=== PATIENT | male | born 1990 | race Caucasian/White ===

== ENCOUNTER 2021-01-17 04:53 | Emergency (ER) | payer OTHER, SELFPAY ==
--- NOTE | ~2021-01-17 | XR_ITS ---
EXAMINATION: XR KNEE, LEFT CLINICAL INFORMATION: Knee injury COMPARISON: None TECHNIQUE: Four views of the left knee. XR/XR knee LT 4V FINDINGS/IMPRESSION: No acute fracture or dislocation. Joint spaces and articular surfaces are maintained. Small suprapatellar joint effusion. Soft tissues unremarkable.
[2021-01-17 05:29] VITALS: BP 113/60; PULSE 71; RESP 18; TEMP 36.4; O2SAT 99; BMI 27.7
[2021-01-17] MEDS: Acetaminophen 325 MG TABLET 650 MG PO (06:32)
--- NOTE | 2021-01-17 06:47 | PC.NURSE ---
at bedside for primary eval.
--- NOTE | 2021-01-17 06:59 | ED_ITS ---
HPI - Extremity Injury (Lower) General Chief Complaint: Extremity Injury, Lower Stated Complaint: possible left knee sprain Time Seen by Provider: 01/17/21 06:43 Source: patient Mode of arrival: ambulatory Limitations: no limitations History of Present Illness HPI Narrative: 30-year-old male who presents emergency department for evaluation of left knee injury. The patient was playing basketball. He states that he he was wearing a left ankle brace. He states that he pivoted and his left knee twisted causing a loud popping sensation. States that he was not able to walk after the injury secondary to pain. The pain is located along the medial aspect of his knee. Describes it as a constant, moderate to severe, aching sensation which is worse with weight-bearing. The patient states this is his 1st injury to this knee. Patient states that he had a tibial fracture of the right knee and was treated at [facility]. He denies any other injury. Related Data Allergies Allergy/AdvReac Type Severity Reaction Status Date / Time No Known Allergies Allergy Unverified 03/10/20 16:09 [No Known Allergies*] Review of Systems Review of Systems: Yes all other systems are reviewed and are negative [facility] Past Medical History [facility] Narrative: Past medical history: None. Social history: He denies tobacco use. Occasionally drinks alcohol, denies drug use. Medical History No known health problems Social History Social History Advance Directives: No Advance Directives Information Provided: No Physical Exam Vital Signs: Vital Signs: Last Vital Signs Temp 97.5 F 01/17/21 05:29 Pulse 71 01/17/21 05:29 Resp 18 01/17/21 05:29 BP 113/60 01/17/21 05:29 Pulse Ox 99 01/17/21 05:29 Body Mass Index 27.7 Const: General: cooperative and healthy appearing Orientation/consciousness: oriented to person Limitations: no limitations HENMT: Head: Yes normal to inspection Resp: Effort & Inspection: normal respiratory effort Neuro: General: oriented to person Extrem: Other: Patient does have soft tissue injury of the left mainly over the medial aspect, there does appear to be a small joint clinically, patient does have tenderness with palpation over the left medial collateral ligament and over the medial aspect of the tibia. The patient has increased pain with anterior dry and with medial stress. His extremities neurovascularly intact. Psych: Appearance: grossly normal Course Course Course Narrative: 22-year-old male who presents emergency department for evaluation of left knee injury sustained while he was polyp basketball. The patient did feel and he hear a loud pop and sensation. His examination does reveal a joint effusion with soft tissue swelling and tenderness over the medial collateral ligament and over the area of the medial meniscus. He has increased pain with medial stress and with interior the stress of has near. X-rays were obtained no acute fracture was noted. I did discuss these findings with the patient, the patient may have injured his medial collateral ligament, medial meniscus or his anterior cruciate ligament. The patient will be placed in a knee immobilizer. He states he has crutches at home from his previous orthopedic injury. He was advised to keep the knee immobilizer on use the crutches until he follows up with his orthopedic provider. He was advised to take ibuprofen and Tylenol for pain. Discharge Plan Discharge Clinical Impression: MCL sprain of left knee Qualifiers: Encounter type: initial encounter Qualified Code(s): S83.412A - Sprain of medial collateral ligament of left knee, initial encounter Patient Disposition: Home, Self-Care Instructions: Knee Sprain (ED), Knee Immobilizer (ED) Additional Instructions: Your presentation and physical findings are consistent with a sprain to your knee (injury to the ligaments). Based on your exam today I suspect that you may have injured your medial collateral ligament. It is also possible that you may have injured the anterior cruciate ligament (ACL) or your medial meniscus. The initial treatment for these injuries is to wear a knee immobilizer for 1-2 weeks and to use your crutches. Use ice for 10-15 minutes 4 to 6 times a day for the next 3-4 days to reduce the pain and swelling. Also take ibuprofen 200 mg pills, 3 pills every 6 hours as needed for pain and take Tylenol (acetaminophen) 500 mg pills, 2 pills every 4 to 6 hours as needed for pain. Call your orthopedic doctor today to make a follow-up appointment within 1-2 weeks. After the pain and swelling is better, the orthopedic doctor's physical examination may help them determine what you injury. Sometimes an MRI of the knee as an outpatient will help also determine what you injured. Please return to the emergency department if your symptoms get worse or if you develop any symptoms that are concerning to you. Your x-ray of your left knee reveals no broken bones. Stand Alone Forms: Work/School Release Interventions: ED Discharge Assessment Last Done: 01/17/21 08:01 Discharge Date/Time: 01/17/21 08:01
== END 2021-01-17 08:01 | disposition home or self-care (01) ==
PROVIDERS: Emergency Provider Emergency Medicine Emergency Medical Services; PCP Internal Medicine
DX: S83.412A Sprain of medial collateral ligament of left knee, initial encounter (principal); X50.1XXA Overexertion from prolonged static or awkward postures, initial encounter; Y93.67 Activity, basketball; Y92.310 Basketball court as the place of occurrence of the external cause; Y99.9 Unspecified external cause status
CPT/HCPCS: 73564; 99284

== ENCOUNTER 2021-02-08 14:42 | Outpatient (REF) | payer BC, SELFPAY ==
--- NOTE | ~2021-02-08 | US_ITS ---
EXAMINATION: US VENOUS ULTRASOUND WITH DOPPLER LOWER EXTREMITY, LEFT CLINICAL INFORMATION: Pain twisted knee COMPARISON: None TECHNIQUE: Ultrasound of the deep veins is performed from the hip to the calf with compression sonography and color and pulse Doppler assessment. Spectral analysis with color-flow imaging is performed. FINDINGS: There is normal venous compression and respiratory variation and augmented flow. The visualized common femoral vein, superficial femoral vein, profunda femoral vein, popliteal vein, and the trifurcation region shows no evidence of deep venous thrombosis. There is a large complex fluid collection in the posterior fossa extending to the mid calf region. This is not measured by the biophysics teacher but is felt to be quite large. Appears complex. If the patient's symptoms persist, followup ultrasound in 5 days 7 days might be of value to exclude proximal propagation from a non-visualized calf vein. US/US venous duplex LE IMPRESSION: No DVT demonstrated in the left lower extremity. There is, over a large complex fluid collection which may represent a Mendoza's cyst extending down into the mid calf region. Correlation clinically. If further evaluation is warranted consider MR
== END 2021-02-08 14:43 | disposition home or self-care (01) ==
LOC: HO.HMGCX 14:42
PROVIDERS: PCP Internal Medicine; Visit Provider Internal Medicine
DX: M79.605 Pain in left leg (principal)
CPT/HCPCS: 93971

== ENCOUNTER 2022-06-06 07:19 | Outpatient (REF) | payer OTHER, SELFPAY | END 2022-06-06 07:20 | disposition home or self-care (01) | LOC: HO.HOSX 07:19 | PROVIDERS: Visit Provider Physician Assistant | DX: Z13.89 Encounter for screening for other disorder (principal) ==

== ENCOUNTER 2022-06-29 07:54 | Outpatient (REF) | payer OTHER, SELFPAY | END 2022-06-29 07:55 | disposition home or self-care (01) | LOC: HO.HOSX 07:54 | PROVIDERS: Visit Provider Physician Assistant | DX: S83.242A Other tear of medial meniscus, current injury, left knee, initial encounter (principal); S83.512A Sprain of anterior cruciate ligament of left knee, initial encounter | CPT/HCPCS: 99202 ==

== ENCOUNTER → 2022-09-19 14:46 | Outpatient (BNVA) | payer BC, SELFPAY | PROVIDERS: Visit Provider Physician Assistant | DX: Z13.89 Encounter for screening for other disorder (principal) ==

== ENCOUNTER 2022-09-26 06:00 | Day surgery (SDC) | payer BC, SELFPAY ==
[2022-09-19 13:25] VITALS: BMI 27.8
--- NOTE | 2022-09-25 18:51 | P.CONAN_ITS ---
HPI - Anesthesia Eval Consult details Narrative: acl reair [facility] Active Problems Active Problems: All Active Problems (Updated 09/19/22 @ 13:25 by Yudelka Bray RN) S/P reconstruction of anterior cruciate ligament (Acute) Tear of medial meniscus of left knee (Acute) Left ACL tear (Acute) Mild major depression, single episode (Acute) Left leg pain (Acute) Knee sprain (Acute) Overweight (BMI 25.0-29.9) (Acute) Past Medical History Medical History Left leg pain Mild major depression, single episode No known health problems Overweight (BMI 25.0-29.9) Family History Family History Mother No problems noted. Father No problems noted. Family history of problems with anesthesia: No Surgical History Surgical History No pertinent past surgical history History of Problems with Anesthesia: No Social History Social History Housing: Apartment Are you a primary managed care specialist to a significant other at home: No Do you presently have visiting nurse or other home services: No Alcohol intake: current Alcohol intake frequency: holidays/special occasions only Alcohol type: beer Patient Tobacco Use Status: Never used Tobacco e-Cigarette/Vaping Use: Never Used Second Hand Smoke Exposure: No Substance Use Type: Marijuana service: No Current occupational status: employed Current occupational exposures/hazards: No Meds Allergies Allergy/AdvReac Type Severity Reaction Status Date / Time No Known Allergies Allergy Verified 09/19/22 15:09 [No Known Allergies*] Home Medications Medication Instructions Recorded Confirmed Last Taken Type No Known Home Meds 02/08/21 09/19/22 Unknown History Exam Exam Date and Time: September 25, [id number] Height,Weight and Vital Signs: Height 6 ft 5 in Weight 106.594 kg Airway Mallampati Class: II TM Dist: >3cm Neck ROM: Full Heart: rrr Lungs: cta Assessment and Plan Assessment Anesthesia Assessment: Anesthesia Plan Discussed and Chart Reviewed Final Anesthetic Review Family History of Problems with Anesthesia: No History of Problems with Anesthesia: No ASA Class: II Final Preanesthetic Review: No Changes in Pt Med Stat, Meds/Allgs Chart Reviewed, Consent Obtained/Reviewed and Anes Risks/Benef Reviewed Patient Risk: Low Procedure Risk: Intermediate Anesthetic Plan Anesthetic Plan: GA and Agree w/ Assess. and Plan Disposition: Standard PACU
[2022-09-26] VITALS (8 sets, daily range): BP systolic 92–151; BP diastolic 56–81; PULSE 63–88; RESP 16–20; TEMP 36.1–37.1; O2SAT 99–100
--- NOTE | 2022-09-26 07:58 | MHC.SHP ---
Pre-Procedural Eval Section A Date of Service: 09/26/22 The patient is an INPATIENT: No Changes since office visit: No Cold of Flu in the past 2 weeks, No New Medical Problems, No Changes in Medication and No Patient answered all questions The History & Physical has been completed within 30 days and I have reviewed it.: Yes Section B Chief Complaint: Sprain of anterior cruciate ligament of left knee, Allergies: Allergies Allergy/AdvReac Type Severity Reaction Status Date / Time No Known Allergies Allergy Verified 09/19/22 15:09 [No Known Allergies*] Plan I have reviewed the history and physical and performed a pertinent physical examination on my patient. No changes have occurred unless specified. Time Spent With Patient Time: Total time managing care of this patient today ____ minutes.
--- NOTE | 2022-09-26 10:14 | PM.OP ---
Brief Operative Note Date of Service: 09/26/22 Pre-op diagnosis: Left knee ACL tear Post-op diagnosis: other (1) ACL tear 2) Medial meniscus tear) Procedure: 1) ACL reconstruction 2) partial medial meniscectomy Implants: [employer] ACL button and 25/10 interference button Surgeon: Cong Yi MD Anesthesia: GETA and regional Was an Perinatal Director used for this Procedure?: Yes Perinatal Director: Doris Roberts Estimated blood loss (mL): 10 Tourniquet time (min): 70 IV fluids (mL): 1,000 Pathology: none sent Condition: stable Disposition: PACU
[2022-09-26] MEDS: Acetaminophen 325 MG TABLET 650 MG PO (10:59)
--- NOTE | 2022-09-28 15:42 | P.OP_ITS ---
Operative Note Operative Note Date of Service: 09/26/22 Narrative: Date of Service: 09/26/22 Pre-op diagnosis: Left knee ACL tear Post-op diagnosis: other (1) ACL tear 2) Medial meniscus tear) Procedure: 1) ACL reconstruction 2) partial medial meniscectomy Implants: [employer] ACL button and 25/10 interference button Surgeon: Cong Yi MD Anesthesia: GETA and regional Was an Franchise Specialist used for this Procedure?: Yes Franchise Specialist: Doris Roberts Estimated blood loss (mL): 10 Tourniquet time (min): 70 IV fluids (mL): 1,000 Pathology: none sent Condition: stable Disposition: PACU Procedure in detail: Patient was brought to the operating room placed supine on the arthroscopic table and prepped and draped in standard sterile fashion. A time-out was called to identify proper site proper procedure proper surgeon and IV antibiotics per weight were administered. Under anesthesia she had a + pivot shift. I began by exsanguinating the limb and insufflating tourniquet to 300 mm Hg. Then made a standard anterolateral stab incision. The knee was insufflated with water and 30 degree arthroscope was placed. There was grade 1 fibrillations of the patella but overall suprapatellar pouch and the gutters were clean. I descended into the medial compartment where I made my far medial portal under direct visualization. There was an unstable bucket handle medial meniscus tear in the red/white zone. The root was intact and there were no cartialge changes of the MFC. I tried to reduce the fragment but it was detached poseriorly and synovialized and not repairable. Therefore it was removed with a shaver. I was satisfied with the resection. Approximately 60% of the meniscal volume remained. I then examined the notch where there was a + empty wall sign and an intact PCL. I debrided the stump and acl footprint and performed a limited notchplasty. I then, through a far AM portal and a 7mm behind the back guide, drilled a k-wire through the LFC with the knee in hyper-flexion. I measured the tunnel as a 40 and then after sizing the allograft on the back table drilled a 28 mm tunnel with an 10 mm reamer. The final 8 mm was drilled withth a 4.5 reamer. I then pulled a suture through the femoral tunnel and turned my attention to the tibia. I did examine the femoral tunnel and was satisfied with the posterior wall and its location low and medial at the anatomic footprint. I placed my tibial drill guide in 55 deg and, through a anteromedial inc just lateral to the tibial tubercle placed a k-wire into the notch exiting just medial to the anterior horn insertion of the lateral meniscus. I then over-reamed with an 10 reamer. I cleaned the tunnels up with a shaver. On the back table I whip-stitched the allograft to fit through an 11 aperture and attached the femoral button to the looped end. I placed the graft on 15lbs of tension for 10 minutes. I then passed the allograft through the tibial tunnel and femoral tunnel and flipped the button. I cycled the knee about 10-15 cycles and then placed a tibial interference screw with the knee in hyper-extension while holding the graft taught. Once I was satisfied that the 10x25 interference screw was buried I examined the ACL and the medial meniscus repair. The repair was stable and the ACL was not impinging and there was a negative pivot shift. I then removed all instrumentation and closed the incisions with nylon. Patient was then placed in sterile dressings and a hinged knee brace. She was then extubated brought recovery room stable condition. There were no known complications.
== END 2022-09-26 11:59 | disposition home or self-care (01) ==
PROVIDERS: PCP Registered Nurse; Visit Provider Orthopaedic Surgery
PROC: (CPT 27428; principal; 2022-09-26 07:30)
DX: S83.242A Other tear of medial meniscus, current injury, left knee, initial encounter (principal); S83.512A Sprain of anterior cruciate ligament of left knee, initial encounter; X58.XXXA Exposure to other specified factors, initial encounter; Y93.9 Activity, unspecified; Y92.9 Unspecified place or not applicable; Y99.8 Other external cause status; E66.9 Obesity, unspecified; Z68.27 Body mass index [BMI] 27.0-27.9, adult; F32.0 Major depressive disorder, single episode, mild; F12.90 Cannabis use, unspecified, uncomplicated
CPT/HCPCS: 29881; 29888; C1713; C1769; J0171; J0690; J1100; J2250; J2795; J3010

== ENCOUNTER 2022-09-28 14:17 | Outpatient (REF) | payer BC, SELFPAY | END 2022-09-28 14:18 | disposition home or self-care (01) | LOC: HO.HOSX 14:17 | PROVIDERS: Visit Provider Physician Assistant | DX: Z13.89 Encounter for screening for other disorder (principal) ==

== ENCOUNTER 2022-10-01 08:40 | Outpatient (REF) | payer BC, SELFPAY ==
--- NOTE | ~2022-10-01 | XR_ITS ---
EXAMINATION: XR KNEE, LEFT CLINICAL INFORMATION: Knee pain. COMPARISON: MRI left knee 05/04/2022, x-ray left knee 01/17/2021. TECHNIQUE: Four views of the left knee. FINDINGS: Since the prior study, there has been prior surgery with anterior cruciate ligament repair. The joint spaces appear normal. No fractures are seen. A moderate knee joint effusion is present. No fractures or dislocations. XR/XR knee LT 2V IMPRESSION: Postoperative changes with moderate knee joint effusion. No fractures are seen.
== END 2022-10-01 08:41 | disposition home or self-care (01) ==
LOC: HO.HOSX 08:40
PROVIDERS: Visit Provider Physician Assistant
DX: S83.242D Other tear of medial meniscus, current injury, left knee, subsequent encounter (principal)
CPT/HCPCS: 73560

== ENCOUNTER → 2022-10-29 13:48 | Outpatient (BNVA) | payer BC, SELFPAY | PROVIDERS: PCP Registered Nurse; Visit Provider Physician Assistant ==

== ENCOUNTER 2022-11-12 14:00 | Outpatient (RCR) | payer BC, SELFPAY ==
--- NOTE | 2022-12-27 08:39 | MHC.PT.DC ---
[facility] [place] [facility] [place] [facility] [place] [facility] [address] Chel Garcia [address] [phone] F: [phone] F: [phone] F: [phone] F: [phone] Physical Therapy Discharge Report Diagnosis: LEFT ACL RECONSTRUCTION AND PARTIAL MEDIAL MENISECTOMY Date of Surgery: DOS 09/26/22 Date of Evaluation: 09/26/22 Date of Discharge: 12/27/22 Treatments to Date: 10 Cancellations to Date: 5 No Shows to Date: 1 Discharge Status: Patient Elected to Stop Discharge Summary: At last attended visit Jona was progressing well in PT although he continued to require verbal and visual cues for appropriate functional squat. He cancelled his last two visits and attempts to reach patient by phone were unsuccessful. Status is unknown at this time but he was issued a comprehensive home program that he will be able to continue with independently. Electronically signed by: Di Steel PT DPT Please sign and return to therapist. Thank you for your referral.
== END 2022-12-27 08:39 | disposition home or self-care (01) ==
LOC: HO.PT 14:00
PROVIDERS: PCP Registered Nurse; Visit Provider Physician Assistant
DX: S83.512D Sprain of anterior cruciate ligament of left knee, subsequent encounter (principal); Z98.890 Other specified postprocedural states
CPT/HCPCS: 97110; 97161

== ENCOUNTER → 2022-12-07 10:58 | Outpatient (BNVA) | payer BC, SELFPAY | PROVIDERS: PCP Registered Nurse; Visit Provider Orthopaedic Surgery ==

== ENCOUNTER 2023-03-15 09:13 | Outpatient (REF) | payer BC, SELFPAY | END 2023-03-15 09:14 | disposition home or self-care (01) | LOC: HO.HOSX 09:13 | PROVIDERS: Visit Provider Orthopaedic Surgery | DX: Z13.89 Encounter for screening for other disorder (principal) ==